=== PATIENT | female | born 1965 | race Hispanic/Latino ===

== ENCOUNTER 2018-10-09 17:16 | Emergency (ER) | payer BC ==
[2018-10-09] MEDS ORDERED: Acetaminophen 500 MG TAB ONE (18:02)
--- NOTE | 2018-10-09 19:41 | RAD ---
LUMBAR SPINE THREE VIEWS: 10/09/18 COMPARISON: None. HISTORY: Injury, trauma, pain. FINDINGS: Five lumbar type vertebral bodies present with intact pedicles on frontal imaging. Lateral imaging de monstrates normal vertebral body height and alignment. There is mild facet hypertrophy at L4-5. No ac [place] osseous abnormality noted. Minimal anterolisthesis at L4-5 measures approximately 2 mm. IMPRESSION: No acute findings. POS: [facility]
== END 2018-10-09 19:11 | disposition home or self-care (01) ==
LOC: ERS 17:16
DX: M54.5 Low back pain (principal); E03.9 Hypothyroidism, unspecified; V89.2XXA Person injured in unspecified motor-vehicle accident, traffic, initial encounter; Y92.481 Parking lot as the place of occurrence of the external cause
CPT/HCPCS: 72100